=== PATIENT | male | born 1995 | race Caucasian/White ===

== ENCOUNTER 2023-12-02 22:22 | Emergency (ER) | payer BC, SELFPAY ==
[2023-12-02 22:54] LABS: #Eosinphils 0.5 thou/uL (0.0-0.7); #Monocytes 0.6 thou/uL (0.11-0.59); #Neutrophils 4.4 thou/uL (1.40-6.50); %Basophils 0.5 % (0.0-1.0); %Eosinophils 5.6 % (0.0-10.0); %Lymphocytes 37.2 % (21.0-51.0); %Monocytes 6.4 % (0.0-10.0); %Neutrophils 49.3 % (42.0-75.0); Hematocrit 39.6 % (42.0-52.0); Hemoglobin 13.8 g/dL (14.0-18.0); Mean Corpuscular HGB CONC 34.8 g/dL (32.0-36.0); Mean Corpuscular Hemoglobin 30.5 pg (27.0-31.0); Mean Corpuscular Volume 87.4 fl (78.0-98.0); Mean Platelet Volume 9.3 fL (7.4-10.4); Platelet Count 319 10x3/uL (130-400); RBC Distribution Width 12.6 % (11.5-14.5); Red Blood Cell (RBC) Count 4.53 mill/uL (4.70-6.10); White Blood Cell (WBC) Count 8.9 10x3/uL (4.8-10.8)
[2023-12-02 23:12] LABS: ALT (SGPT) 27 U/L (8-55); AST (SGOT) 21 U/L (5-34); Albumin 4.3 g/dL (3.5-5.0); Alkaline Phosphatase 57 U/L (40-110); Anion Gap 15 mmol/L (10-20); BUN (Urea Nitrogen) 13 mg/dL (8.9-20.6); Bilirubin, Total 0.4 mg/dL (0.2-1.2); Calc. Creatinine Clearance 0 mL/min (70-130); Calcium 9.7 mg/dL (7.8-10.44); Carbon Dioxide 24 mmol/L (22-29); Chloride 102 mmol/L (98-107); Estimated GFR 107; Globulin 2.9 g/dL (2.4-3.5); Glucose 121 mg/dL (70-105); Potassium 3.7 mmol/L (3.5-5.1); Protein, Total 7.2 g/dL (6.0-8.3); Sodium 137 mmol/L (136-145)
[2023-12-02 23:15] LABS: Troponin I 0.011 ng/mL (< 0.028)
== END 2023-12-03 00:38 | disposition home or self-care (01) ==
LOC: ERS 22:22
DX: F12.10 Cannabis abuse, uncomplicated (principal); R00.2 Palpitations; R07.9 Chest pain, unspecified; R06.89 Other abnormalities of breathing
CPT/HCPCS: 36415; 71045; 80053; 84484; 85025; 93005; 94760